=== PATIENT | female | born 1995 | race Two or more races ===

== ENCOUNTER → 2021-09-23 | Outpatient (CLI) | payer MEDICAID ==
[2021-09-23 10:35] LABS: Basophils # (auto) 0 10 ^3/uL (0-0.2); Basophils % (auto) 0.5 % (0.0-2.0); Eosinophils # (auto) 0.1 10 ^3/uL (0-0.8); Eosinophils % (auto) 1.2 % (0.0-7.0); Hemoglobin 9.5 g/dL (12.2-16.2); Lymphocytes # (auto) 1.7 10 ^3/uL (0.4-5.4); Lymphocytes % (auto) 20.3 % (10.0-50.0); Mean Corpuscular Hemoglobin 30.7 pg (28.0-32.0); Mean Corpuscular Volume 90.3 fL (80.0-100.0); Monocytes # (auto) 0.6 10 ^3/uL (0-1.3); Monocytes % (auto) 7.3 % (0.0-12.0); Neutrophils # (auto) 5.9 10 ^3/uL (1.6-8.6); Neutrophils % (auto) 70.7 % (37.0-80.0); Nucleated Red Blood Cells % 0.1 %; Red Cell Distribution Width 12.7 % (11.8-14.3); White Blood Cell 8.3 10^3/uL (4.4-10.8)
[2021-09-24 07:07] LABS: RPR Non Reactive (Non Reactive)
== END | disposition home or self-care (01) ==
LOC: LAB 09:47
PROVIDERS: ATTEND Obstetrics & Gynecology
DX: Z34.00 Encounter for supervision of normal first pregnancy, unspecified trimester (principal); Z36.0 Encounter for antenatal screening for chromosomal anomalies; Z72.51 High risk heterosexual behavior
CPT/HCPCS: 36415; 83036; 84112; 84144; 84702; 85025; 86592; 86703; 86762; 86850; 86900; 86901; 87086; 87340

== ENCOUNTER 2021-11-27 19:58 | Observation (INO) | payer MEDICAID ==
[~2021-11-27] VITALS: Ht 149.9 cm; Wt 49.0 kg
== END 2021-11-28 00:26 | disposition home or self-care (01) ==
LOC: LDRP 19:58
PROVIDERS: ADMIT Obstetrics & Gynecology; ATTEND Obstetrics & Gynecology
DX: O99.891 Other specified diseases and conditions complicating pregnancy (principal); M54.50 Low back pain, unspecified; R10.9 Unspecified abdominal pain; O62.9 Abnormality of forces of labor, unspecified; O26.893 Other specified pregnancy related conditions, third trimester; N89.8 Other specified noninflammatory disorders of vagina; Z3A.36 36 weeks gestation of pregnancy
CPT/HCPCS: 59025; 76818; 84112; Q0114; 81002; G0378

== ENCOUNTER 2021-12-07 09:58 | Observation (INO) | payer MEDICAID ==
[2021-12-07] MEDS ORDERED: PREN1TAB71 OR (10:41)
== END 2021-12-07 11:33 | disposition home or self-care (01) ==
LOC: LDRP 09:58
PROVIDERS: ADMIT Obstetrics & Gynecology; ATTEND Obstetrics & Gynecology
DX: O62.9 Abnormality of forces of labor, unspecified (principal); Z3A.38 38 weeks gestation of pregnancy
CPT/HCPCS: 59025; 81002; 94760; G0378

== ENCOUNTER 2021-12-12 00:05 | Observation (INO) | payer MEDICAID ==
[~2021-12-12] VITALS: Ht 149.9 cm; Wt 49.4 kg
[~2021-12-12 00:05] MED LIST: PREN1TAB71 OR
== END 2021-12-12 04:40 | disposition home or self-care (01) ==
LOC: LDRP 00:05 → UNDOADMOB 00:05 → LDRP 03:36
PROVIDERS: ADMIT Obstetrics & Gynecology; ATTEND Obstetrics & Gynecology
DX: O62.9 Abnormality of forces of labor, unspecified (principal); Z3A.39 39 weeks gestation of pregnancy
CPT/HCPCS: 59025; 81002; G0378

== ENCOUNTER 2021-12-13 23:49 | Inpatient (IN) | payer MEDICAID ==
[~2021-12-13] VITALS: Ht 149.9 cm; Wt 49.9 kg
[2021-12-14] MEDS ORDERED: LACT. RINGERS/OXYTOCIN 20UNITS 500 ML IV ONE ×2 (00:30→01:00)
[2021-12-14] MEDS ORDERED: PROMETHAZINE HCL 25 MG/ML 1ML IV PRN (00:30)
[2021-12-14] MEDS ORDERED: LACTATED RINGER'S 1,000 ML IV SCH (00:30)
[2021-12-14] MEDS ORDERED: PENICILLIN G POT 5MIL/D5 50ML 50 ML IV ONE (00:30)
[2021-12-14] MEDS ORDERED: BUTORPHANOL TARTRATE 2 MG/1 ML VIAL IV PRN ×2 (00:30)
[2021-12-14] MEDS ORDERED: PHISODERM TOP SOLN 240ML BTL TOP PRN (00:30)
[2021-12-14] MEDS ORDERED: LIDOCAINE 2%HCL (LOCAL ANESTH.) INJ 10ml MDV IJ PRN (00:30)
[2021-12-14] MEDS ORDERED: miSOPROStol 100 mcg TAB SL PRN (00:45)
[2021-12-14] MEDS ORDERED: METHYLERGONOVINE MALEATE 0.2 MG/ML AMP IM ONE (00:45)
[2021-12-14] MEDS ORDERED: miSOPROStol 100 mcg TAB PR PRN (00:45)
[2021-12-14] MEDS ORDERED: CARBOPROST TROMETHAMINE 250 MCG/1ML VIAL IM PRN (00:45)
[2021-12-14 00:57] LABS: Basophils # (auto) 0 10 ^3/uL (0-0.2); Basophils % (auto) 0.4 % (0.0-2.0); Eosinophils # (auto) 0.1 10 ^3/uL (0-0.8); Eosinophils % (auto) 0.6 % (0.0-7.0); Hemoglobin 11.2 g/dL (12.2-16.2); Lymphocytes # (auto) 2.3 10 ^3/uL (0.4-5.4); Lymphocytes % (auto) 20.7 % (10.0-50.0); Mean Corpuscular Hemoglobin 29.1 pg (28.0-32.0); Mean Corpuscular Volume 88.1 fL (80.0-100.0); Monocytes % (auto) 8.9 % (0.0-12.0); Neutrophils # (auto) 7.7 10 ^3/uL (1.6-8.6); Neutrophils % (auto) 69.4 % (37.0-80.0); Red Blood Cells 3.87 10^6/uL (4.0-5.20); Red Cell Distribution Width 13.8 % (11.8-14.3); White Blood Cell 11.2 10^3/uL (4.4-10.8)
[2021-12-14 01:17] LABS: Urine Bacteria NONE SEEN /hpf (None Seen); Urine Blood 1+ /uL (Negative); Urine Mucus FEW (None Seen); Urine Specific Gravity 1.011 (1.001-1.035); Urine WBC 12 /hpf (0 - 5)
[2021-12-14 01:18] LABS: Albumin 2.7 g/dL (3.4-5.0); BUN/Creatinine Ratio 17.3; Calcium 8.2 mg/dL (8.5-10.1); Potassium 3.6 mmol/L (3.5-5.1)
[2021-12-14 01:21] LABS: Bilirubin, Total 0.2 mg/dL (0.2-1.0); Total Protein 6.9 g/dL (6.4-8.2)
[2021-12-14 01:23] LABS: Alcohol, Urine < 3.0 mg/dL (0-10); Amphetamine Screen, Urine NEGATIVE (NEGATIVE); Barbiturate Scree,Urine NEGATIVE (NEGATIVE); Benzodiazephine Screen, Urine NEGATIVE (NEGATIVE); Cannabinoid Screen, Urine NEGATIVE (NEGATIVE); Cocaine Screen, Urine NEGATIVE (NEGATIVE); Opiate Scree,Urine NEGATIVE (NEGATIVE); Phencyclidine Screen, Urine NEGATIVE (NEGATIVE)
[2021-12-14 02:01] LABS: INR 0.91 (0.9-1.15); Partial Thromboplastin Time 25.7 sec (23.6-33.0)
[2021-12-14] MEDS ORDERED: ePHEDrine SULFATE 50 MG/ML AMP IV ONE (03:00)
[2021-12-14] MEDS ORDERED: NALOXONE HCL 0.4 MG/ML VIAL IV ONE (03:00)
[2021-12-14] MEDS ORDERED: LIDOCAINE HCL 2 %PF INJ 10ML AMP IJ ONE (03:00)
[2021-12-14] MEDS ORDERED: LACTATED RINGER'S 1,000 ML IV ONE (03:00)
[2021-12-14] MEDS ORDERED: ROPIVACAINE HCL 200 ML EPI SCH (03:00)
[2021-12-14] MEDS ORDERED: fentaNYL CITRATE 100 MCG/2 ML VL IV ONE (03:00)
[2021-12-14] MEDS ORDERED: LIDOCAINE 2%HCL (LOCAL ANESTH.) INJ 10ml MDV ONE (03:04)
[2021-12-14] MEDS: PENICILLIN G POTASSIUM 2,500,000 UNITS in D5W 5% 50 ML IV SCH ×2 (05:23→09:40)
[2021-12-14] MEDS ORDERED: ceFAZolin 2 GM in D5W 5% 100 ML IV ONE (11:15)
[2021-12-14] MEDS ORDERED: LACT. RINGERS/OXYTOCIN 20UNITS 1,000 ML IV SCH (12:00)
[2021-12-14] MEDS: DERMOPLAST 60ML BOTTLE TOP PRN (12:05)
[2021-12-14] MEDS: WITCH HAZEL-GLYCERIN PAD TOP PRN (12:06)
[2021-12-14] MEDS ORDERED: ONDANSETRON ODT 4 MG TAB PO PRN (15:00)
[2021-12-14] MEDS ORDERED: ACETAMINOPHEN 325 MG TAB PO PRN (15:00)
[2021-12-14] MEDS: IBUPROFEN 600 MG TAB PO PRN ×2 (16:35→23:52)
[2021-12-14] MEDS: ceFAZolin 1GM/50ML 50 ML IV SCH (19:21)
[2021-12-14 19:30] VITALS: BP 102/55
[2021-12-14] MEDS ORDERED: DOCUSATE SOD 100 MG CAP PO SCH (22:00)
[2021-12-14 23:30] VITALS: BP 116/64
[2021-12-15 03:30] VITALS: BP 101/57
[2021-12-15] MEDS: ceFAZolin 1GM/50ML 50 ML IV SCH (03:51)
[2021-12-15] MEDS: IBUPROFEN 600 MG TAB PO PRN ×2 (05:39→15:21)
[2021-12-15 07:00] VITALS: BP 97/58
[2021-12-15 11:00] VITALS: BP 105/62
[2021-12-15 15:00] VITALS: BP 101/66
[2021-12-15] MEDS: WITCH HAZEL-GLYCERIN PAD TOP PRN (15:20)
[2021-12-15] MEDS: DERMOPLAST 60ML BOTTLE TOP PRN (15:20)
[2021-12-16 05:07] LABS: RPR Non Reactive (Non Reactive)
== END 2021-12-15 16:59 | disposition home or self-care (01) | DRG 560 ==
LOC: LDRP 23:49 → OBSVTOIN 12-14 00:14 → LDRP 12-14 02:01
PROVIDERS: ADMIT Obstetrics & Gynecology; ATTEND Obstetrics & Gynecology
PROC: 10E0XZZ Delivery of Products of Conception, External Approach (ICD-10-PCS; principal; 2021-12-14)
PROC: 0KQM0ZZ Repair Perineum Muscle, Open Approach (ICD-10-PCS; 2021-12-14)
PROC: 0W8NXZZ Division of Female Perineum, External Approach (ICD-10-PCS; 2021-12-14)
PROC: 3E0R3BZ Introduction of Anesthetic Agent into Spinal Canal, Percutaneous Approach (ICD-10-PCS; 2021-12-14)
PROC: 00HU33Z Insertion of Infusion Device into Spinal Canal, Percutaneous Approach (ICD-10-PCS; 2021-12-14)
DX: O99.824 Streptococcus B carrier state complicating childbirth (principal); Z37.0 Single live birth; Z20.822 Contact with and (suspected) exposure to COVID-19; O70.1 Second degree perineal laceration during delivery; Z3A.39 39 weeks gestation of pregnancy
CPT/HCPCS: 36415; 59025; 59409; 62282; 80053; 80307; 81001; 81002; 84112; 85025; 85610; 85730; 86592; 86850; 86900; 86901; 94760; 96360; 96361; 96365; 96366; 96372; G0378; J0690; J2001; J2540; J2590; J7060

== ENCOUNTER → 2023-06-18 | Outpatient (CLI) | payer MEDICAID ==
[2023-06-18 11:13] LABS: Basophils # (auto) 0 10 ^3/uL (0-0.2); Basophils % (auto) 0.4 % (0.0-2.0); Eosinophils # (auto) 0.1 10 ^3/uL (0-0.8); Eosinophils % (auto) 1.4 % (0.0-7.0); Hematocrit 36.2 % (36.0-46.0); Hemoglobin 11.9 g/dL (12.2-16.2); Lymphocytes # (auto) 1.9 10 ^3/uL (0.4-5.4); Mean Corpuscular Hemoglobin 29.5 pg (28.0-32.0); Mean Corpuscular Hgb Conc. 32.8 g/dL (32.0-36.0); Monocytes # (auto) 0.4 10 ^3/uL (0-1.3); Monocytes % (auto) 4.6 % (0.0-12.0); Neutrophils % (auto) 73.6 % (37.0-80.0); Red Blood Cells 4.02 10^6/uL (4.0-5.20); Red Cell Distribution Width 13.5 % (11.8-14.3); White Blood Cell 9.5 10^3/uL (4.4-10.8)
[2023-06-18 11:34] LABS: Amphetamine Screen, Urine Neg (NEGATIVE); Barbiturate Scree,Urine Neg (NEGATIVE); Benzodiazephine Screen, Urine Neg (NEGATIVE); Cannabinoid Screen, Urine Neg (NEGATIVE); Cocaine Screen, Urine Neg (NEGATIVE); Opiate Scree,Urine Neg (NEGATIVE); Phencyclidine Screen, Urine Neg (NEGATIVE)
[2023-06-19 08:06] LABS: RPR Non Reactive (Non Reactive)
[2023-06-19 11:06] LABS: Treponema Pallidum Ab LC Non Reactive (Non Reactive)
== END | disposition home or self-care (01) ==
LOC: LAB 10:36
PROVIDERS: ATTEND Obstetrics & Gynecology
DX: Z34.00 Encounter for supervision of normal first pregnancy, unspecified trimester (principal); Z31.430 Encounter of female for testing for genetic disease carrier status for procreative management; Z20.6 Contact with and (suspected) exposure to human immunodeficiency virus [HIV]; N39.0 Urinary tract infection, site not specified; Z3A.00 Weeks of gestation of pregnancy not specified
CPT/HCPCS: 36415; 80307; 83036; 84112; 84144; 84702; 85025; 86592; 86703; 86762; 86850; 86900; 86901; 87086; 87340

== ENCOUNTER → 2023-11-30 | Outpatient (CLI) | payer MEDICAID ==
[~2023-11-30] MED LIST changes: +CEPH250C PO
[2023-11-30 14:10] LABS: Eosinophils # (auto) 0.1 10 ^3/uL (0-0.8); Eosinophils % (auto) 0.7 % (0.0-7.0); Lymphocytes # (auto) 1.4 10 ^3/uL (0.4-5.4); Monocytes # (auto) 0.6 10 ^3/uL (0-1.3); Neutrophils # (auto) 6.2 10 ^3/uL (1.6-8.6); Nucleated Red Blood Cells % 0.1 %
[2023-11-30 14:12] LABS: Basophils # (auto) 0.1 10 ^3/uL (0-0.2); Basophils % (auto) 0.6 % (0.0-2.0); Hematocrit 26.1 % (36.0-46.0); Hemoglobin 8.6 g/dL (12.2-16.2); Lymphocytes % (auto) 17.2 % (10.0-50.0); Mean Corpuscular Hemoglobin 24.2 pg (28.0-32.0); Mean Corpuscular Hgb Conc. 32.8 g/dL (32.0-36.0); Mean Corpuscular Volume 73.9 fL (80.0-100.0); Monocytes % (auto) 7.2 % (0.0-12.0); Neutrophils % (auto) 74.3 % (37.0-80.0); Red Blood Cells 3.53 10^6/uL (4.0-5.20); White Blood Cell 8.3 10^3/uL (4.4-10.8)
[2023-12-01 07:07] LABS: RPR Non Reactive (Non Reactive)
[2023-12-02 03:06] LABS: Chlamydia Trachomatis, NAA Negative (Negative); Neisseria gonorrhoeae, NAA Negative (Negative)
== END | disposition home or self-care (01) ==
LOC: LAB 13:54
PROVIDERS: ATTEND Obstetrics & Gynecology
DX: Z34.00 Encounter for supervision of normal first pregnancy, unspecified trimester (principal); Z72.51 High risk heterosexual behavior; Z3A.00 Weeks of gestation of pregnancy not specified
CPT/HCPCS: 36415; 85025; 86592; 87086

== ENCOUNTER 2023-12-01 16:55 | Observation (INO) | payer MEDICAID ==
[~2023-12-01 16:55] MED LIST changes: -CEPH250C PO
[2023-12-01] MEDS: NIFEdipine 10 MG CAP ONE (18:28)
[2023-12-01] MEDS: TERBUTALINE SULFATE 1 MG/ML 1ML VIAL SC ONE (18:28)
[2023-12-01] MEDS: BETAMETHASONE ACET (30mg/5ml) 5ml Vial 6mg/ml ONE (18:29)
[2023-12-01 18:31] LABS: Urine Bacteria None Seen /hpf (None Seen)
[2023-12-01 18:54] LABS: Urine Blood 3+ /uL (Negative); Urine Clarity Turbid (Clear); Urine Color Light-Brown (Yellow); Urine Mucus FEW (None Seen); Urine Protein, UAD TRACE (Negative); Urine Specific Gravity 1.011 (1.001-1.035); Urine Urobilinogen Normal (Negative); Urine WBC 89 /hpf (0 - 5)
[2023-12-01 19:55] LABS: Vaginal Trichomonas Not Present
[2023-12-01 19:56] LABS: Vaginal Bacteria Few; Vaginal Clue Cells None Seen; Vaginal Epithelial Cells Moderate
[2023-12-01] MEDS: BETAMETHASONE ACET (30mg/5ml) 5ml Vial 6mg/ml IM ONE (20:18)
[2023-12-01] MEDS: TERBUTALINE SULFATE 1 MG/ML 1ML VIAL SC SCH (20:19)
[2023-12-01] MEDS: LACTATED RINGER'S 1,000 ML IV SCH (20:21)
[2023-12-01] MEDS: NIFEdipine 10 MG CAP PO ONE (20:24)
[2023-12-01] MEDS: LACTATED RINGER'S 1,000 ML IV ONE (20:26)
[2023-12-01] MEDS ORDERED: CEPH250C PO ×2 (20:32)
== END 2023-12-01 21:28 | disposition home or self-care (01) ==
LOC: LDRP 16:55 → UNDODISOB 17:57
PROVIDERS: ADMIT Obstetrics & Gynecology; ATTEND Obstetrics & Gynecology
DX: O60.03 Preterm labor without delivery, third trimester (principal); O23.43 Unspecified infection of urinary tract in pregnancy, third trimester; O26.893 Other specified pregnancy related conditions, third trimester; R31.9 Hematuria, unspecified; R10.30 Lower abdominal pain, unspecified; Z3A.35 35 weeks gestation of pregnancy
CPT/HCPCS: 59025; 76815; 81001; 81002; 87210; 94760; 96360; 96361; 96372; G0378; J0702; J3105

== ENCOUNTER 2023-12-02 18:58 | Observation (INO) | payer MEDICAID ==
[~2023-12-02] VITALS: Ht 149.9 cm; Wt 52.6 kg
[~2023-12-02 18:58] MED LIST changes: +CEPH250C PO
[2023-12-02] MEDS: BETAMETHASONE ACET (30mg/5ml) 5ml Vial 6mg/ml IM ONE (19:24)
[2023-12-02] MEDS: NIFEdipine 10 MG CAP PO ONE (20:21)
== END 2023-12-02 21:47 | disposition home or self-care (01) ==
LOC: LDRP 18:58
PROVIDERS: ADMIT Obstetrics & Gynecology; ATTEND Obstetrics & Gynecology
DX: O60.03 Preterm labor without delivery, third trimester (principal); O23.43 Unspecified infection of urinary tract in pregnancy, third trimester; O99.013 Anemia complicating pregnancy, third trimester; D64.9 Anemia, unspecified; Z3A.35 35 weeks gestation of pregnancy
CPT/HCPCS: 59025; 81002; 94760; 96372; G0378

== ENCOUNTER 2023-12-06 19:10 | Observation (INO) | payer MEDICAID ==
[2023-12-06] MEDS ORDERED: NIF10C PO (20:00)
[2023-12-06] MEDS ORDERED: FERR325T24 PO (20:01)
== END 2023-12-06 20:07 | disposition home or self-care (01) ==
LOC: LDRP 19:10
PROVIDERS: ADMIT Obstetrics & Gynecology; ATTEND Obstetrics & Gynecology
DX: O47.03 False labor before 37 completed weeks of gestation, third trimester (principal); Z3A.36 36 weeks gestation of pregnancy
CPT/HCPCS: 59025; 81002; 94760; G0378

== ENCOUNTER 2023-12-18 14:09 | Inpatient (IN) | payer MEDICAID ==
[~2023-12-18] VITALS: Ht 149.9 cm; Wt 51.7 kg
[~2023-12-18 14:09] MED LIST changes: +FERR325T24 PO; +NIF10C PO
[2023-12-18] MEDS ORDERED: BUTORPHANOL TARTRATE 2 MG/1 ML VIAL IV PRN ×2 (15:15)
[2023-12-18] MEDS ORDERED: PHISODERM TOP SOLN 240ML BTL TOP PRN (15:15)
[2023-12-18] MEDS ORDERED: LIDOCAINE 2%HCL (LOCAL ANESTH.) INJ 20ML MDV IJ PRN (15:15)
[2023-12-18 16:03] LABS: Eosinophils # (auto) 0 10 ^3/uL (0-0.8); Eosinophils % (auto) 0.1 % (0.0-7.0); Monocytes # (auto) 0.5 10 ^3/uL (0-1.3); Red Cell Distribution Width 18.5 % (11.8-14.3)
[2023-12-18 16:04] LABS: Basophils # (auto) 0 10 ^3/uL (0-0.2); Basophils % (auto) 0.4 % (0.0-2.0); Hematocrit 28.6 % (36.0-46.0); Hemoglobin 9.1 g/dL (12.2-16.2); Lymphocytes # (auto) 1.5 10 ^3/uL (0.4-5.4); Lymphocytes % (auto) 16.7 % (10.0-50.0); Mean Corpuscular Hemoglobin 23.2 pg (28.0-32.0); Mean Corpuscular Hgb Conc. 31.7 g/dL (32.0-36.0); Mean Corpuscular Volume 73.1 fL (80.0-100.0); Monocytes % (auto) 5.4 % (0.0-12.0); Neutrophils # (auto) 6.9 10 ^3/uL (1.6-8.6); Neutrophils % (auto) 77.4 % (37.0-80.0); Nucleated Red Blood Cells % 0.1 %; Red Blood Cells 3.91 10^6/uL (4.0-5.20); White Blood Cell 8.9 10^3/uL (4.4-10.8)
[2023-12-18 16:05] LABS: Urine Bacteria FEW /hpf (None Seen); Urine Blood Negative /uL (Negative); Urine Clarity Clear (Clear); Urine Color Yellow (Yellow); Urine Mucus FEW (None Seen); Urine Protein, UAD TRACE (Negative); Urine Specific Gravity 1.024 (1.001-1.035); Urine Urobilinogen Normal (Negative); Urine WBC 5 /hpf (0 - 5)
[2023-12-18 16:12] LABS: Amphetamine Screen, Urine Neg (NEGATIVE); Barbiturate Scree,Urine Neg (NEGATIVE); Benzodiazephine Screen, Urine Neg (NEGATIVE); Cocaine Screen, Urine Neg (NEGATIVE); Opiate Scree,Urine Neg (NEGATIVE); Phencyclidine Screen, Urine Neg (NEGATIVE)
[2023-12-18 16:13] LABS: Cannabinoid Screen, Urine Neg (NEGATIVE)
[2023-12-18 16:16] LABS: Alanine Aminotransferase 15 U/L (7-40); Albumin 4.1 g/dL (3.2-4.8); Alkaline Phosphatase 147 U/L (46-116); Anion Gap 9 (5-15); Aspartate Aminotransferase 23 U/L (13-40); BUN/Creatinine Ratio 16.1 (10.0-20.0); Blood Urea Nitrogen 9 mg/dL (9-23); Calcium 9.2 mg/dL (8.7-10.4); Carbon Dioxide 21 mmol/L (20-30); Chloride 106 mmol/L (98-107); Glucose 69 mg/dL (74-106); Potassium 3.4 mmol/L (3.5-5.1); Sodium 136 mmol/L (136-145)
[2023-12-18 16:17] LABS: Bilirubin, Total 0.5 mg/dL (0.2-1.0); Total Protein 6.9 g/dL (5.7-8.2)
[2023-12-18 17:00] LABS: INR 0.92 (0.9-1.15); Partial Thromboplastin Time 24.1 SEC (24.5-34.5); Prothrombin Time 9.8 sec (9.3-11.8)
[2023-12-18] MEDS ORDERED: fentaNYL 400mCg/200ml W ROPIVA 200 ML EPI SCH (17:15)
[2023-12-18] MEDS ORDERED: NALOXONE HCL 0.4 MG/ML VIAL IV ONE (17:15)
[2023-12-18] MEDS ORDERED: ePHEDrine SULFATE 50 MG/ML AMP IV ONE (17:15)
[2023-12-18] MEDS ORDERED: LIDOCAINE HCL 2 %PF INJ 10ML AMP IJ ONE (17:15)
[2023-12-18] MEDS ORDERED: fentaNYL CITRATE 100 MCG/2 ML VL IV ONE (17:15)
[2023-12-18] MEDS ORDERED: ROPIVACAINE HCL 200 ML ONE (17:22)
[2023-12-18] MEDS: LACTATED RINGER'S 1,000 ML IV SCH (17:28)
[2023-12-18] MEDS: PENICILLIN G POT 5MIL/D5 50ML 50 ML IV ONE (17:28)
[2023-12-18] MEDS ORDERED: TERBUTALINE SULFATE 1 MG/ML 1ML VIAL SC PRN (18:30)
[2023-12-18] MEDS: LACT. RINGERS/OXYTOCIN 20UNITS 1,000 ML IV SCH (18:55)
[2023-12-18] MEDS: LACT. RINGERS/OXYTOCIN 20UNITS 500 ML IV ONE ×2 (20:54→21:17)
[2023-12-18] MEDS: METHYLERGONOVINE MALEATE 0.2 MG/ML AMP IM ONE (20:56)
[2023-12-18] MEDS ORDERED: PENICILLIN G POTASSIUM 2,500,000 UNITS in D5W 5% 50 ML IV SCH (21:00)
[2023-12-18] MEDS ORDERED: ONDANSETRON HCL 4 MG/2 ML VIAL IV PRN (22:00)
[2023-12-18] MEDS: ONDANSETRON HCL 4 MG/2 ML VIAL ONE (22:03)
[2023-12-18 23:07] VITALS: BP 122/79; PULSE 108; RESP 16; TEMP 97.8; O2SAT 99
[2023-12-19] VITALS (7 sets, daily range): BP systolic 107–123; BP diastolic 57–70; PULSE 74–80; RESP 16–18; TEMP 98–99.6; O2SAT 97–100
[2023-12-19] MEDS: ACETAMINOPHEN 325 MG TAB PO PRN (03:05)
[2023-12-19] MEDS: IBUPROFEN 600 MG TAB PO PRN (08:05)
[2023-12-19] MEDS ORDERED: DOCUSATE SOD 100 MG CAP PO SCH ×2 (22:00)
[2023-12-19] MEDS: WITCH HAZEL-GLYCERIN PAD TOP PRN (23:22)
[2023-12-19] MEDS: DERMOPLAST 60ML BOTTLE TOP PRN (23:22)
[2023-12-21 05:07] LABS: RPR Non Reactive (Non Reactive)
[2023-12-21 18:06] LABS: Treponema pallidum Ab (FTA-Ab) Non Reactive (Non Reactive)
== END 2023-12-19 23:24 | disposition home or self-care (01) | DRG 560 ==
LOC: LDRP 14:09 → UNDOADMOB 14:09 → OBSVTOIN 14:45 → INTOOBSV 14:45 → LDRP 14:45 → OBSVTOIN 15:16
PROVIDERS: ADMIT Obstetrics & Gynecology; ATTEND Obstetrics & Gynecology
PROC: 10E0XZZ Delivery of Products of Conception, External Approach (ICD-10-PCS; principal; 2023-12-18)
PROC: 0W8NXZZ Division of Female Perineum, External Approach (ICD-10-PCS; 2023-12-18)
PROC: 0KQM0ZZ Repair Perineum Muscle, Open Approach (ICD-10-PCS; 2023-12-18)
PROC: 3E0R3BZ Introduction of Anesthetic Agent into Spinal Canal, Percutaneous Approach (ICD-10-PCS; 2023-12-18)
PROC: 00HU33Z Insertion of Infusion Device into Spinal Canal, Percutaneous Approach (ICD-10-PCS; 2023-12-18)
DX: O70.1 Second degree perineal laceration during delivery (principal); Z37.0 Single live birth; R71.0 Precipitous drop in hematocrit; Z3A.38 38 weeks gestation of pregnancy
CPT/HCPCS: 36415; 59025; 59409; 62282; 80053; 80307; 81001; 81002; 85025; 85610; 85730; 86592; 86803; 86850; 86900; 86901; 94760; 96360; 96361; 96365; 96366; G0378; J2405; J2540; J2590; J7060

== ENCOUNTER 2024-10-23 12:11 | Emergency (ER) | payer MEDICAID ==
[~2024-10-23] VITALS: Ht 149.9 cm; Wt 42.6 kg
[~2024-10-23 12:11] MED LIST changes: -NIF10C PO; +NIFE10CA52 PO
[2024-10-23 13:56] LABS: Basophils # (auto) 0 10 ^3/uL (0-0.2); Basophils % (auto) 0.4 % (0.0-2.0); Eosinophils # (auto) 0.2 10 ^3/uL (0-0.8); Eosinophils % (auto) 2.3 % (0.0-7.0); Hematocrit 38.9 % (36.0-46.0); Hemoglobin 12.7 g/dL (12.2-16.2); Lymphocytes % (auto) 21.3 % (10.0-50.0); Mean Corpuscular Hgb Conc. 32.7 g/dL (32.0-36.0); Mean Corpuscular Volume 82.6 fL (80.0-100.0); Monocytes # (auto) 0.9 10 ^3/uL (0-1.3); Monocytes % (auto) 9.4 % (0.0-12.0); Neutrophils # (auto) 6.2 10 ^3/uL (1.6-8.6); Neutrophils % (auto) 66.6 % (37.0-80.0); Nucleated Red Blood Cells % 0.1 %; Platelet Count (auto) 326 10^3/uL (140-450); Red Cell Distribution Width 14.4 % (11.8-14.3); White Blood Cell 9.3 10^3/uL (4.4-10.8)
[2024-10-23 14:02] LABS: Chloride 106 mmol/L (98-107); Sodium 140 mmol/L (136-145)
[2024-10-23 14:03] LABS: Anion Gap 10 (5-15); Carbon Dioxide 24 mmol/L (20-31)
[2024-10-23 14:04] LABS: Calcium 9.8 mg/dL (8.7-10.4)
[2024-10-23 14:09] LABS: BUN/Creatinine Ratio 20.7 (10.0-20.0); Blood Urea Nitrogen 12 mg/dL (9-23); Glucose 95 mg/dL (74-106)
[2024-10-23 14:30] VITALS: TEMP 98.3
--- NOTE | 2024-10-23 15:23 | DVH ---
US OF THE left BREAST INDICATION: Mass at 12 o'clock TECHNIQUE: Targeted left breast ultrasound was performed. COMPARISON: Prior exam dated: None FINDINGS: No solid or suspicious masses. No areas of architectural distortion. No malignant adenopathy. No dominant cysts are present. IMPRESSION: There is no sonographic evidence for malignancy. No sonographic correlate to reported palpable abnorm ality in the left breast. Recommend clinical follow-up. ACR Bi Rads Category:Category 1
[2024-10-23] MEDS ORDERED: CEPH500C PO (15:48)
--- NOTE | 2024-10-23 15:49 | ED.PDOC ---
History of Present Illness(SKN HPI Comments 29 year F w/ no MHx presents for pain to the left breast. Onto started two days ago and is currently located at 12:00 p.m.. Associated with mild erythema. Aggravated to touch. Has not tried medications for the symptoms listed above. Denies any drainage from the nipple. Denies any inverted nipple. Denies any color changes or breast issues in the past Chief Complaint: Breast pain Time Seen by MD: 13:26 Primary Care Provider: [facility]IN[facility] History of Present Illness: Nurses Notes, Medications, Allergies Allergies: Coded Allergies: NO KNOWN ALLERGIES (Unverified , 12/07/21) Home Meds Active Scripts Cephalexin Monohydrate (Cephalexin) 500 Mg Cap, 1 CAP PO QID for 7 Days, #28 CAP 0 Refills Prov:KATELIN GALVIN CNC SERVICE TECHNICIAN 10/23/24 Cephalexin (KEFLEX CAPSULE) 250 Mg Cp, 500 MG PO BID for 7 Days, #14 CAP Prov:SHAHANA ROTH CNM 12/01/23 Reported Medications Ferrous Sulfate (Ferrous Sulfate) 325 Mg Tab, 325 MG PO Q8HR for 30 Days, MG 12/06/23 Nifedipine (PROCARDIA CAPSULE) 10 Mg Cp, 10 MG PO Q4HR for contractions, CAP 12/06/23 Vit W/ Ferrous Fumara (PNV PLUS MULTIVI) Plus Tab, 1 OR DAILY, TAB 12/07/21 Information Source: Relative (Mother) Mode of Arrival: Ambulatory Past Medical History PAST MEDICAL HISTORY: Denies Family History Family History: Reviewed,noncontributory to illness Social History Smoker: Non-Smoker Alcohol: Denies ETOH Use Drugs: Denies Drug Use All Other Systems: Reviewed and Negative (Per HPI) Physical Exam General Appearance: No Apparent Distress, Normal HEENT: Normal ENT Inspection, Pharynx Normal, TMs Normal Neck: Full Range of Motion, Non-Tender, Normal, Normal Inspection Respiratory: Chest Non-Tender, Lungs Clear, No Accessory Muscle Use, No Respiratory Distress, Normal Breath Sounds Cardiovascular: No Edema, No JVD, No Murmur, No Gallop, Regular Rate/Rhythm Breast Exam: (L) Tenderness (Tenderness located at 11-12 o'clock.), Deferred Gastrointestinal: No Organomegaly, Non Tender, No Pulsatile Mass, Normal Bowel Sounds, Soft Genitalia: Deferred Pelvic: Deferred Rectal: Deferred Extremities: No calf tenderness, Normal capillary refill, Normal inspection, Normal range of motion, Non-tender, No pedal edema Musculoskeletal : Apperance: Normal Neurologic: Alert, No Motor Deficits, Normal Affect, Normal Mood, No Sensory Deficits Cerebellar Function: Normal Reflexes: Normal Skin: Dry, Normal Color, Warm Lymphatic: No Adenopathy Was a procedure done? Was a procedure done?: No Differential Diagnosis (INTG) Differential Diagnosis: Other X-Ray, Labs, Meds, VS Vital Signs Date Time Temp Pulse Resp B/P (MAP) Pulse Ox O2 Delivery O2 Flow Rate FiO2 10/23/24 16:00 99 16 112/70 (84) 97 10/23/24 14:30 Room Air* 0 21 10/23/24 14:30 98.3 76 16 120/89 (99) 98 98.3 10/23/24 12:19 98.4 89 20 118/60 (79) 96 98.4 Lab Test 10/23/24 13:40 Range/Units White Blood Count 9.3 4.4-10.8 10^3/uL Red Blood Count 4.70 4.0-5.20 10^6/uL Hemoglobin 12.7 12.2-16.2 g/dL Hematocrit 38.9 36.0-46.0 % Mean Corpuscular Volume 82.6 80.0-100.0 fL Mean Corpuscular Hemoglobin 27.0 L 28.0-32.0 pg Mean Corpuscular Hemoglobin Concent 32.7 32.0-36.0 g/dL Red Cell Distribution Width 14.4 H 11.8-14.3 % Platelet Count 326 140-450 10^3/uL Mean Platelet Volume 7.3 6.9-10.8 fL Neutrophils (%) (Auto) 66.6 37.0-80.0 % Lymphocytes (%) (Auto) 21.3 10.0-50.0 % Monocytes (%) (Auto) 9.4 0.0-12.0 % Eosinophils (%) (Auto) 2.3 0.0-7.0 % Basophils (%) (Auto) 0.4 0.0-2.0 % Neutrophils # (Auto) 6.2 1.6-8.6 10 ^3/uL Lymphocytes # (Auto) 2.0 0.4-5.4 10 ^3/uL Monocytes # (Auto) 0.9 0-1.3 10 ^3/uL Eosinophils # (Auto) 0.2 0-0.8 10 ^3/uL Basophils # (Auto) 0 0-0.2 10 ^3/uL Nucleated Red Blood Cells 0.1 % Sodium Level 140 136-145 mmol/L Potassium Level 4.0 3.5-5.1 mmol/L Chloride Level 106 98-107 mmol/L Carbon Dioxide Level 24 20-31 mmol/L Anion Gap 10 5-15 Blood Urea Nitrogen 12 9-23 mg/dL Creatinine 0.58 0.550-1.02 mg/dL Glomerular Filtration Rate Calc 127 >90 mL/min BUN/Creatinine Ratio 20.7 H 10.0-20.0 Serum Glucose 95 74-106 mg/dL Calcium Level 9.8 8.7-10.4 mg/dL PATIENT: DIANA SAENZACCT: [id number] UNIT: [id number] : 1995 LOC: ER ROOM / BED: / AGE / SEX: 29 / F ADM STATUS: REG ER SERVICE [id number] ORDERING PHYSICIAN: KATELIN GALVIN NP PROCEDURE(s): LBRST - L BREAST ULTRASOUND REASON: Mass at 12 o'clock ORDER NUMBER(s): [id number], ACCESSION NUMBER(s): [id number] US OF THE left BREAST INDICATION: Mass at 12 o'clock TECHNIQUE: Targeted left breast ultrasound was performed. COMPARISON: Prior exam dated: None FINDINGS: No solid or suspicious masses. No areas of architectural distortion. No malignant adenopathy. No dominant cysts are present. IMPRESSION: There is no sonographic evidence for malignancy. No sonographic correlate to reported palpable abnormality in the left breast. Recommend clinical follow-up. ACR Bi Rads Category:Category 1 ATED BY: MARIO ALBERTO MD DICTATED DATE/TIME: 10/23/24 152 SIGNED BY: MARIO ALBERTO MD SIGNED DATE/TIME: 10/23/24 152 CC: X-Ray, Labs, Meds, VS Comment IMPRESSION: There is no sonographic evidence for malignancy. No sonographic correlate to reported palpable abnormality in the left breast. Recommend clinical follow-up. ACR Bi Rads Category:Category 1 Patient is stable for discharge at this time. Based on shared decision making patient agreed to empiric Tx External notes reviewed. Test results and diagnostic imaging interpreted. All diagnostic findings, discharge care, education and instructions provided Follow-up with PCP in 2 to 3 days Patient verbalized understanding and agreed to treatment plan Vital signs stable, afebrile, no acute distress noted Patient ambulatory with strong steady gait Advised to return precautions for any new or worsening symptoms, return to ER immediately for re-evaluation Patient is aware that the purpose of this visit was for an acute medical emergency requiring emergent stabilization. Chronic conditions, including malignancies have not been ruled out. Patient is instructed to follow up with PCP as directed and discharge instructions for continued care and workup. If unable to arrange follow-up, patient is to return to the emergency department for reassessment. Patient (parent or legal guardian if applicable) was given verbal and written discharge instructions and acknowledges understanding. Additional MDM Review of External, Non-ED records: External records reviewed. Discussion with independent historian (EMS, family) history obtained from the p atient at bedside Chronic conditions affecting care: None Social determinants of health affecting care: None Consideration of admission (observation or admission): I considered escalation of care to admission for this patient, however given the reassuring workup, the patient is safe for outpatient management. Time of 1ST Reevaluation: 15:44 Reevaluation 1ST: Improved Patient Education/Counseling: Diagnosis, Treatment Family Education/Counseling: Diagnosis, Treatment Departure 1 Departure Time of Disposition: 15:48 Impression: Primary Impression: Breast pain Disposition: 01 HOME / SELF CARE / HOMELESS Condition: Stable e-Prescriptions Cephalexin Monohydrate (Cephalexin) 500 Mg Cap 1 CAP PO QID for 7 Days, #28 CAP 0 Refills Prov: KATELIN GALVIN NP 10/23/24 Discharged With: Self Critical Care Note Critical Care Time?: No Stability Stability form required: No Heart Score Heart Score: Heart Score Response (Comments) Value History N/A 0 EKG N/A 0 Age N/A 0 Risk Factors N/A 0 Troponin N/A 0 Total 0 KATELIN GALVIN NP October 23, 2024 15:49
[2024-10-23 16:00] VITALS: BP 112/70; PULSE 99; RESP 16; O2SAT 97
== END 2024-10-23 16:09 | disposition home or self-care (01) ==
LOC: ER 12:11
DX: N64.4 Mastodynia (principal)
CPT/HCPCS: 36415; 76642; 80048; 85025